=== PATIENT | female | born 1955 | race Caucasian/White ===

== ENCOUNTER 2021-11-19 21:08 | Inpatient (IN) | payer MEDICARE, OTHER ==
[~2021-11-19] VITALS: Ht 160 cm; Wt 46.3 kg
--- NOTE | 2021-11-19 21:20 | NUR ---
Dr. Sneed at bedside for MSE.
--- NOTE | 2021-11-19 21:25 | NUR ---
Pt medically cleared by Dr. Sneed.
[2021-11-19] MEDS ORDERED: INHALER (21:31)
--- NOTE | 2021-11-19 21:31 | NUR ---
PATIENT DOES NOT RECALL HOME MEDICATIONS.
--- NOTE | 2021-11-19 21:50 | NUR ---
Report given to December RN MHU.
[2021-11-19] MEDS ORDERED: HALOPERIDOL LACTATE 5 MG/1 ML VIAL IM ONE ×2 (22:00)
[2021-11-19] MEDS ORDERED: diphenhydrAMINE 50 MG/1 ML VIAL IM ONE (22:00)
[2021-11-19] MEDS ORDERED: diphenhydrAMINE 50 MG/1 ML VIAL ONE (22:02)
[2021-11-19] MEDS ORDERED: HALOPERIDOL LACTATE 5 MG/1 ML VIAL ONE (22:03)
[2021-11-19 22:30] VITALS: BP 103/58
[2021-11-19] MEDS ORDERED: MAG HYDROX/AL HYDROX/SIMETH 30 ML LIQUID UDC PO PRN (22:30)
--- NOTE | 2021-11-19 22:40 | NUR ---
GPS ADMISSION: Patient is a 66 year old female, brought into the ER from [facility] on 5150 for DTO and GD. Per the hold, the police were called to her residence because she was screaming and threatening the neighbors. The patient was paranoid and thinks people are stalking her. In the ER, the patient was aggressive and tried to strike the staff. Upon face to face evaluation the patient was argumentative, combative and labile. The patient has pain and a large prolapsed rectum. No home medications reported or documented. The patient was redirectable and took a shower. A injection was given per ED staff prior to the admission. Orders received and patient was given a copy of the Patient Advisement and Patients rights handbook. The unit rules were explained . Safety Stratiges are in place and continuing to monitor for behavior escalation.
[2021-11-19] MEDS ORDERED: ALBUTEROL SULFATE 2.5 MG/3 ML NEBU NEB PRN (23:45)
[2021-11-20] MEDS: HYDROCODONE/APAP 10-325 MG TABLET PO PRN ×2 (03:47→20:23)
--- NOTE | 2021-11-20 06:12 | NUR ---
Patient remained stable during the shift. no distress identified. Denies SI. Kept call light within reach. All due meds given. all needs attended. Safety measures maintained. Will endorse to the next shift for continuity of care
[2021-11-20 07:58] LABS: BILIRUBIN,TOTAL 0.5 mg/dL (0.2-1.0); CREATININE 0.5 mg/dL (0.6-1.3); TOTAL PROTEIN, SERUM 6.2 g/dL (6.4-8.2)
[2021-11-20] MEDS: NICOTINE 14 MG/24HR PATCH TD SCH (08:00)
[2021-11-20 09:17] VITALS: BP 115/76
[2021-11-20 17:08] VITALS: BP 131/59
[2021-11-20 20:00] VITALS: BP 134/85
[2021-11-20] MEDS: risperiDONE 1 MG TABLET PO SCH (21:23)
[2021-11-21 05:59] VITALS: BP 104/70
--- NOTE | 2021-11-21 06:20 | NUR ---
GPS: Remain calm and cooperative. npo since midnight. no pain or agitation noted at this time. resting in bed comfortably. slept 8 hrs through the night. continue plan of care.
--- NOTE | 2021-11-21 07:00 | NUR ---
PT WENT TO THE OPERATING ROOM FOR REDUCTION OF RECTAL PROLAPSE VIA HER BED,ACCOMPANIED BY OR STAFFS.PT IS ALERT,ORIENTEDX2-3.NPO SINCE AFTER MIDNIGHT AND URINATED BEFORE SHE LEFT,VITAL SIGNS-STABLE.SHE SLEPT GOOD LAST NIGHT AND IN NO ACUTE DISTRESS.WILL CONTINUE TO MONITOR.
[2021-11-21] MEDS ORDERED: BUPIVACAINE 0.25% 30 ML VIAL ONE (07:02)
[2021-11-21] MEDS ORDERED: NEOSTIGMINE METHYLSULFATE 10 MG/10 ML VIAL IV ONE (07:33)
[2021-11-21] MEDS ORDERED: LIDOCAINE-MPF 2% 5 ML VIAL IJ ONE (07:33)
[2021-11-21] MEDS ORDERED: DEXAMETHASONE SOD PHOSPHATE 4 MG INJ IV ONE (07:33)
[2021-11-21] MEDS ORDERED: FENTANYL CITRATE 100 MCG/2 ML AMPUL ONE (07:33)
[2021-11-21] MEDS ORDERED: PROPOFOL 200 MG/20 ML BOTTLE IV ONE (07:33)
[2021-11-21] MEDS: NICOTINE 14 MG/24HR PATCH TD SCH (09:17)
[2021-11-21] MEDS: risperiDONE 1 MG TABLET PO SCH ×2 (09:18→20:21)
[2021-11-21] MEDS: DIVALPROEX 250 MG TABLET.DR PO SCH ×3 (09:18→16:12)
[2021-11-21 09:50] VITALS: BP 99/63
--- NOTE | 2021-11-21 10:00 | NUR ---
pt returned from surgical procedure. Pt is calm and cooperative, hyperverbal at times. Pt is quite delusional, saying shes glad shes not having an ectopic . Reoriented to reality. v/s stable. denies pain or discomfort at this time.
[2021-11-21 16:17] VITALS: BP 104/63
--- NOTE | 2021-11-21 17:35 | NUR ---
no complications from surgery noted at this time. Pt able to make all needs. Denies pain or discomfort at this time. V/S WNL.
[2021-11-21 20:00] VITALS: BP 138/72
[2021-11-21] MEDS: TEMAZEPAM 7.5 MG CAPSULE PO PRN (22:04)
--- NOTE | 2021-11-22 06:41 | NUR ---
GPS/NSG PATIENT OBSERVED PACING IN HER ROOM, HYPERVERBAL. APPEARED TO BE TALKING TO HERSELF WELL RESPONDING TO INTERNAL STIMULI. PRN FOR INSOMNIA ADMINISTERED ORDERED.
[2021-11-22 07:43] VITALS: BP 97/57
[2021-11-22] MEDS: DIVALPROEX 250 MG TABLET.DR PO SCH ×3 (08:04→17:12)
[2021-11-22] MEDS: risperiDONE 1 MG TABLET PO SCH ×2 (08:04→20:15)
[2021-11-22] MEDS: NICOTINE 14 MG/24HR PATCH TD SCH (08:04)
--- NOTE | 2021-11-22 11:47 | NUR ---
SARAI Initial Discharge Note: Pt was admitted to [facility] from her home located at [address] [place] [address] on a 5150 hold for harm to others and be unable to take care of your own food clothing or penitentiary. Per pt's , Bebeto ([phone]) pt will return home under his care upon discharge. Bebeto stated he cannot provide transportation due to not having a car but he will have pt's insurance provide transportation upon discharge. Bebeto stated he will be the only one involved in the pt's continuation of care. SARAI will continue to work with pt, family and MD to ensure a safe and proper discharge plan for the pt.
--- NOTE | 2021-11-22 11:48 | NUR ---
SARAI Admit Source: Pt was admitted to [facility] from her home located at [address] [place] [address] on a 5150 hold for harm to others and be unable to take care of your own food clothing or retirement. Per pt's , Bebeto ([phone]) pt will return home under his care upon discharge. Bebeto stated he cannot provide transportation due to not having a car but he will have pt's insurance provide transportation upon discharge. Bebeto stated he will be the only one involved in the pt's continuation of care. SARAI will continue to work with pt, family and MD to ensure a safe and proper discharge plan for the pt.
--- NOTE | 2021-11-22 11:50 | NUR ---
Firearms Report: Stage Set Designer completed and submitted a [employer] firearms report for 5150 harm someone else and be unable to take care of your own food clothing or skilled nursing certifications. A copy of report has been placed in patient chart.
[2021-11-22] MEDS: HYDROCODONE/APAP 10-325 MG TABLET PO PRN (14:08)
[2021-11-22 16:17] VITALS: BP 125/73
--- NOTE | 2021-11-22 16:29 | NUR ---
Pt. is receive sleeping in her room. A/O X 2 to person, place. Pt. is a good historian and likes to engage in long conversations. "I want to go to [place] where my boyfriend lives". Compliant with medications and cooperative with care. [place] 10 mg/ 325mg was given at 14:08 for right ankle, effective. Denies SI/HI AH/VH. Emotional support provided. Fall and safety precautions implemented.
[2021-11-22] MEDS: ENSURE ENLIVE (VAN) 240 ML LIQUID PO SCH (17:13)
[2021-11-22 20:11] VITALS: BP 120/60
[2021-11-22] MEDS: TEMAZEPAM 7.5 MG CAPSULE PO PRN (20:59)
[2021-11-23] MEDS: risperiDONE 1 MG TABLET PO SCH ×2 (08:24→20:29)
[2021-11-23] MEDS: NICOTINE 14 MG/24HR PATCH TD SCH (08:24)
[2021-11-23] MEDS: DIVALPROEX 250 MG TABLET.DR PO SCH ×3 (08:24→16:57)
[2021-11-23] MEDS: ENSURE ENLIVE (VAN) 240 ML LIQUID PO SCH ×3 (08:27→16:58)
[2021-11-23 09:28] VITALS: BP 144/63
[2021-11-23 16:00] VITALS: BP 125/62
--- NOTE | 2021-11-23 17:29 | NUR ---
RECEIVED PATIENT A/O X2,ANXIOUS,DEPRESSED ISOLATIVE .SELF CARE,BRP AND AMBULATORY.COMPLIANT WITH MEDS AND CARE.S/P REDUCTION OF RECTAL PROLAPSE WITH NO BLEEDING NOTED.DENIES PAIN/SI/HI.MUMBLING TO SELF @ TIMES.PRN SLEEP MED WAS GIVEN WITH EFF.IN NO ACUTE DISTRESS.WILL CONTINUE TO MONITOR.
[2021-11-23 20:02] VITALS: BP 128/60
[2021-11-23] MEDS: HYDROCODONE/APAP 10-325 MG TABLET PO PRN (20:11)
[2021-11-23] MEDS: MAGNESIUM HYDROXIDE 30 ML LIQUID UDC PO PRN (23:29)
[2021-11-24] MEDS: HYDROCODONE/APAP 10-325 MG TABLET PO PRN ×2 (04:58→12:23)
[2021-11-24 07:30] VITALS: BP 120/88
[2021-11-24] MEDS: DIVALPROEX 250 MG TABLET.DR PO SCH ×3 (08:49→19:06)
[2021-11-24] MEDS: ENSURE ENLIVE (VAN) 240 ML LIQUID PO SCH ×3 (08:50→19:06)
[2021-11-24] MEDS: risperiDONE 1 MG TABLET PO SCH ×2 (08:50→20:59)
[2021-11-24] MEDS: NICOTINE 14 MG/24HR PATCH TD SCH (08:50)
--- NOTE | 2021-11-24 09:52 | NUR ---
GPS: RECEIVED TODAY, PT HYPERVERBAL WHEN APPROACHED. COMPLIANT WITH MEDS AND CARE. NOT IN DISTRESS AT THIS TIME.
[2021-11-24] MEDS: LORAZEPAM 1 MG TABLET PO PRN (15:58)
--- NOTE | 2021-11-24 15:58 | NUR ---
GPS: PT GETS ANXIOUS BECAUSE OF THE OTHER PT BEHAVIOR. PT REQUESTED FOR ATIVAN, GIVEN AND TOLERATED WELL. WILL MONITOR PT.
[2021-11-24] MEDS: MAGNESIUM HYDROXIDE 30 ML LIQUID UDC PO PRN (20:59)
[2021-11-24 21:01] VITALS: BP 125/45
[2021-11-24] MEDS: TEMAZEPAM 7.5 MG CAPSULE PO PRN (22:20)
--- NOTE | 2021-11-25 04:46 | NUR ---
Received to care, lying in bed, pleasant, anxious, and hyperverbal upon approach. Reports no bowel movement x 6 days. Milk of Magnesia given at bedtime, for second straight night. Also given prune juice. Abdomen is soft and tender. Denies any pain, ofr other GI symptoms. Bowel sounds are present, but decreased. Encouraged to report any change in condition. Restoril given at bedtime for insomnia. Sleeping well, this night. Addendum: 11/25/21 at 0453 by CHER LANG LVN Pt advised that staff will alert MD in AM, of constipation.
[2021-11-25 07:30] VITALS: BP 119/67
[2021-11-25] MEDS: risperiDONE 1 MG TABLET PO SCH ×2 (08:10→20:39)
[2021-11-25] MEDS: DIVALPROEX 250 MG TABLET.DR PO SCH ×2 (08:10→13:05)
[2021-11-25] MEDS: NICOTINE 14 MG/24HR PATCH TD SCH (08:11)
[2021-11-25] MEDS: ENSURE ENLIVE (VAN) 240 ML LIQUID PO SCH ×3 (08:11→17:43)
--- NOTE | 2021-11-25 08:54 | NUR ---
GPS: RECEIVED PT AWAKE AT THE ACTIVITY ROOM COLORING AND WATCHING TV. PT APOLOGETIC OF WHAT SHE BEHAVED YESTERDAY. PT PLEASANT AND DENIES ANY PAIN OR DISCOMFORT AT THIS TIME. COMPLIANT WITH CARE AND MEDS.
[2021-11-25] MEDS ORDERED: MIRALAX 17 GM POWD.PACK PO ONE (14:30)
--- NOTE | 2021-11-25 14:34 | NUR ---
GPS: CALLED LUCILLE MANRIQUEZ NP RE: PT NOT HAVING BOWEL MOVEMENT X 6DAYS. PT PASSING FLATULENCE FREQUENTLY BUT NO BM. PT DENIES ANY PAIN OR DISCOMFORT AT SURGERY SITE. NOTED NO BLEEDING AT THIS TIME AT THE SITE. PT AIR INTERCEPT CONTROLLER SUPERVISOR ORDERED MIRALAX AND WA GIVEN TO PT AND TOLERATED WELL. ADVISED PT TO HAVE SENAKOT TONIGHT JUST IN CASE NO BM.
[2021-11-25 16:00] VITALS: BP 105/60
[2021-11-25 20:00] VITALS: BP 119/72
[2021-11-25] MEDS: DIVALPROEX 500 MG TABLET.DR PO SCH (20:39)
[2021-11-25] MEDS: TEMAZEPAM 7.5 MG CAPSULE PO PRN (22:17)
[2021-11-25] MEDS: SENNOSIDES 1 TABLET PO PRN (22:17)
[2021-11-26] MEDS: LORAZEPAM 1 MG TABLET PO PRN (03:14)
--- NOTE | 2021-11-26 06:20 | NUR ---
Received at start of shift, pleasant, but hyperverbal. Still no bowel movement, so Sennakot was given at bedtime. Restoril was also given, but she woke up around 0300, and took PRN Ativan, and went back to sleep for an hour or so. She is now awake, but still no result from the Sennokot. Will continue to monitor closely.
[2021-11-26 07:48] VITALS: BP 114/75
[2021-11-26] MEDS: DIVALPROEX 250 MG TABLET.DR PO SCH ×2 (09:07→12:53)
[2021-11-26] MEDS: risperiDONE 1 MG TABLET PO SCH (09:07)
[2021-11-26] MEDS: NICOTINE 14 MG/24HR PATCH TD SCH (09:08)
[2021-11-26] MEDS: ENSURE ENLIVE (VAN) 240 ML LIQUID PO SCH ×3 (09:09→17:07)
--- NOTE | 2021-11-26 15:40 | NUR ---
Gps/Therapist Occupational- Encouraged participation in her group therapy. Cooperative, redirectable, verbalized feelings and needs.
[2021-11-26 17:43] VITALS: BP 116/70
[2021-11-26] MEDS: HYDROCODONE/APAP 10-325 MG TABLET PO PRN (18:48)
[2021-11-26 20:23] VITALS: BP 132/61
[2021-11-26] MEDS: risperiDONE 0.5 MG TABLET PO SCH (22:47)
[2021-11-26] MEDS: DIVALPROEX 500 MG TABLET.DR PO SCH (22:47)
[2021-11-26] MEDS: SENNOSIDES 1 TABLET PO PRN (22:48)
[2021-11-27] MEDS: TEMAZEPAM 7.5 MG CAPSULE PO PRN ×2 (00:15→23:58)
--- NOTE | 2021-11-27 03:28 | NUR ---
Received to care, sitting in room, talking with room mate, speech is hyperverbal. Denies any psychotic sx. Slept
[2021-11-27] MEDS: HYDROCODONE/APAP 10-325 MG TABLET PO PRN ×3 (05:40→20:25)
[2021-11-27 07:30] VITALS: BP 97/61
--- NOTE | 2021-11-27 07:30 | NUR ---
PRN senokot was given last night, and she reported that she had 3 small soft bowel movements.
[2021-11-27] MEDS: DIVALPROEX 250 MG TABLET.DR PO SCH ×2 (08:29→12:21)
[2021-11-27] MEDS: risperiDONE 0.5 MG TABLET PO SCH ×2 (08:30→20:19)
[2021-11-27] MEDS: ENSURE ENLIVE (VAN) 240 ML LIQUID PO SCH ×3 (08:32→17:33)
[2021-11-27] MEDS: NICOTINE 14 MG/24HR PATCH TD SCH (08:32)
[2021-11-27 16:00] VITALS: BP 113/65
[2021-11-27 20:00] VITALS: BP 101/60
[2021-11-27] MEDS: DIVALPROEX 500 MG TABLET.DR PO SCH (20:19)
[2021-11-27 20:20] VITALS: BP 124/70
[2021-11-28] MEDS: HYDROCODONE/APAP 10-325 MG TABLET PO PRN ×2 (06:01→18:42)
--- NOTE | 2021-11-28 06:48 | NUR ---
GPS: Remain calm and cooperative with meds and care. c/o rectal pain. norco given twice through the shift. slept 5 hrs after sleeping meds given. self care no acute distress noted.
[2021-11-28 08:13] VITALS: BP 100/54
[2021-11-28] MEDS: DIVALPROEX 250 MG TABLET.DR PO SCH ×2 (08:24→12:28)
[2021-11-28] MEDS: ENSURE ENLIVE (VAN) 240 ML LIQUID PO SCH ×3 (08:25→17:10)
[2021-11-28] MEDS: risperiDONE 0.5 MG TABLET PO SCH ×2 (08:25→21:54)
[2021-11-28] MEDS: NICOTINE 14 MG/24HR PATCH TD SCH (08:26)
--- NOTE | 2021-11-28 14:56 | NUR ---
Gps/Molder Helper- Compliant with routine meds. self care, ambulates around. Adequate relief from her hip pain. Cooperative, making her simple needs known to the staff , ,independent with her ADLs ,
[2021-11-28 17:02] VITALS: BP 108/52
[2021-11-28 20:18] VITALS: BP 126/67
[2021-11-28] MEDS: DIVALPROEX 500 MG TABLET.DR PO SCH (21:51)
[2021-11-28] MEDS: SENNOSIDES 1 TABLET PO PRN (21:54)
[2021-11-29] MEDS: TEMAZEPAM 7.5 MG CAPSULE PO PRN ×2 (01:30→21:48)
[2021-11-29] MEDS: HYDROCODONE/APAP 10-325 MG TABLET PO PRN ×2 (02:41→20:24)
[2021-11-29] MEDS: ACETAMINOPHEN 325 MG TABLET PO PRN (06:18)
--- NOTE | 2021-11-29 06:44 | NUR ---
Received to care, sitting in room, talking with room mate, speech is hyperverbal. Denies any psychotic sx. Slept well during night. Reported having a BM, and assisted with a shower. Rectal area remains clean and dry. Right hip continues to bother her. PRN [place] was given with good relief. No distress, noted.
[2021-11-29 08:04] VITALS: BP 97/65
[2021-11-29] MEDS: NICOTINE 14 MG/24HR PATCH TD SCH (08:43)
[2021-11-29] MEDS: DIVALPROEX 250 MG TABLET.DR PO SCH ×2 (08:43→12:37)
[2021-11-29] MEDS: risperiDONE 0.5 MG TABLET PO SCH ×2 (08:43→20:22)
[2021-11-29] MEDS: ENSURE ENLIVE (VAN) 240 ML LIQUID PO SCH ×3 (08:44→16:46)
[2021-11-29 16:11] VITALS: BP 122/76
[2021-11-29] MEDS: LORAZEPAM 1 MG TABLET PO PRN ×2 (18:02→23:16)
--- NOTE | 2021-11-29 18:57 | NUR ---
GPS: Nursing Notes: Destructive Behavior To Others: Patient is awake and responding to her name, needs prompting to participate in therapeutic groups, sundown behavior, labile, unpredictable behavior, shouting to unseen others in the bathroom, verbal abusive, threatening staff with a law suit, internally preoccupied, poor anger management, unable to formulate a viable plan for self care, continue with treatment plan.
[2021-11-29 20:19] VITALS: BP 111/64
[2021-11-29] MEDS: DIVALPROEX 500 MG TABLET.DR PO SCH (20:22)
--- NOTE | 2021-11-30 02:11 | NUR ---
VISUAL CHECKS AND ROUNDS MADE, PATIENT IS COMFORTABLY SLEEPING. WILL CONTINUE TO MONITOR.
[2021-11-30] MEDS: HYDROCODONE/APAP 10-325 MG TABLET PO PRN ×2 (06:46→17:39)
[2021-11-30 08:00] VITALS: BP 101/67
[2021-11-30] MEDS: NICOTINE 14 MG/24HR PATCH TD SCH (08:52)
[2021-11-30] MEDS: risperiDONE 0.5 MG TABLET PO SCH (08:52)
[2021-11-30] MEDS: DIVALPROEX 250 MG TABLET.DR PO SCH ×2 (08:52→12:41)
[2021-11-30] MEDS: ENSURE ENLIVE (VAN) 240 ML LIQUID PO SCH ×3 (08:52→16:54)
[2021-11-30] MEDS: LORAZEPAM 1 MG TABLET PO PRN ×2 (12:41→20:33)
--- NOTE | 2021-11-30 15:34 | NUR ---
GPS: Nursing Notes: Destructive Behavior To Others: Patient is awake and responding to her name, labile, unpredictable behavior, sundown behavior, gets easily irritable when redirected, needs prompting to participate in therapeutic groups, loud and pressured speech at times, gets in the bathroom and starts shouting profanities toward peers and staff, but compliant with her PRN medication for agitation, unable to formulate a viable plan for self care, continue to monitor for safety, continue with treatment plan.
[2021-11-30 16:49] VITALS: BP 116/60
[2021-11-30 20:20] VITALS: BP 111/56
[2021-11-30] MEDS: DIVALPROEX 500 MG TABLET.DR PO SCH (20:32)
[2021-11-30] MEDS: risperiDONE 1 MG TABLET PO SCH (20:32)
[2021-11-30] MEDS: ACETAMINOPHEN 325 MG TABLET PO PRN (20:33)
[2021-12-01] MEDS: TEMAZEPAM 7.5 MG CAPSULE PO PRN (01:02)
[2021-12-01] MEDS: HYDROCODONE/APAP 10-325 MG TABLET PO PRN ×2 (01:56→23:44)
--- NOTE | 2021-12-01 03:49 | NUR ---
Received to care, isolating mostly in room, compliant with care, behavior has been appropriate, interacting with room mate. Ativan was given at bedtime along with her routine meds, and she went back to sleep. PRN Restoril was given at 0100 for insomnia, and she went de to sleep. No distress noted.
[2021-12-01 07:17] LABS: HEMATOCRIT 36.6 % (31.2-41.9); MEAN CORPUSCULAR HEMOGLOBIN 29.7 uug (24.7-32.8); MEAN CORPUSCULAR VOLUME 90.2 fL (75.5-95.3); PLATELET COUNT (AUTO) 487 K/uL (179-408)
[2021-12-01 07:30] VITALS: BP 96/58
[2021-12-01 07:55] LABS: BILIRUBIN,TOTAL 0.4 mg/dL (0.2-1.0); CREATININE 0.7 mg/dL (0.6-1.3); MAGNESIUM 2.2 mg/dL (1.8-2.4); PHOSPHOROUS 4.6 mg/dL (2.5-4.9); POTASSIUM 4.6 mmol/L (3.5-5.1); TOTAL PROTEIN, SERUM 6.5 g/dL (6.4-8.2)
[2021-12-01] MEDS: NICOTINE 14 MG/24HR PATCH TD SCH (08:15)
[2021-12-01] MEDS: DIVALPROEX 250 MG TABLET.DR PO SCH ×2 (08:16→12:38)
[2021-12-01] MEDS: ENSURE ENLIVE (VAN) 240 ML LIQUID PO SCH ×3 (08:16→17:35)
[2021-12-01] MEDS: risperiDONE 1 MG TABLET PO SCH ×2 (08:16→20:04)
[2021-12-01 08:17] LABS: THYROID STIMULATING HORMONE 6.463 mIU/mL (0.358-3.740)
--- NOTE | 2021-12-01 15:35 | NUR ---
Received patient sleeping in her room. A/O X 2 -3 to person, place. Pt. is cooperative with care, isolative, anxious at times. Compliant with medications. Pt. ambulates with walker, unsteady gait. Denies SI/HI AH/VH. Pt. has prolapse rectum, wears diaper, but continent. Denies pain at this moment. Requires minimal assistance with ADL. Pt. is encourage to verbalize concerns. Fall and safety precautions implemented.
[2021-12-01 16:00] VITALS: BP 115/76
[2021-12-01 20:00] VITALS: BP 124/54
[2021-12-01] MEDS: DIVALPROEX 500 MG TABLET.DR PO SCH (20:04)
[2021-12-01] MEDS: ACETAMINOPHEN 325 MG TABLET PO PRN (20:04)
--- NOTE | 2021-12-01 21:45 | NUR ---
RECEIVED PATIENT IN HER ROOM IN BED. SHE IS NOTED SLEEPING BUT EASILY AROUSABLE. PATIENT IS NOTED A/O X 3 ABLE TO VERBALIZED FEELINGS. SHE IS NOTED WITH LOW MOOD, AFFECT IS BLUNTED. SHE DENIED SI/HI/VH/AH. SHE IS ABLE TO VERBALLY CFS. SHE IS REASSURED FOR HER SAFETY. SAFETY AND FALL PRECAUTIONS ARE IN PLACE. V/S STABLE. HER ORAL TEMPERATURE IS 99.7F. PATIENT IS IN NO DISTRESS. SHE WAS GIVEN TYLENOL 650MG PO PRN AT APPROX. 2009. IT WAS RECHECKED AND IS NOW 98.0F. PO FLUIDS AND SNACKS WAS GIVEN TO PATIENT. WILL CONTINUE TO MONITOR.
[2021-12-02] MEDS: TEMAZEPAM 7.5 MG CAPSULE PO PRN (02:29)
[2021-12-02 04:11] LABS: *BILIRUBIN,URIN NEGATIVE (NEGATIVE); *BLOOD, URINE 1+ (NEGATIVE); *CLARITY,URINE CLOUDY (CLEAR); *COLOR,URINE YELLOW (YELLOW); *KETONES,URINE NEGATIVE (NEGATIVE); *UROBILINOGEN,URINE 0.2 E.U./dl (NORMAL); LEUKOCYTE ESTERASE ,URINE 2+ (NEGATIVE); NITRITE, URINE POSITIVE (NEGATIVE); PH,URINE 8.5 (5.0-8.0); UGLUCOSE NEGATIVE (NEGATIVE)
[2021-12-02 04:23] LABS: BACTERIA,URINE MANY /HPF (NONE SEEN); SQUAMOUS EPITHELIAL CELL,UR FEW /HPF (NONE SEEN); TRIPLE PHOSPHATE CRYSTAL,UR MODERATE /HPF (NONE SEEN); WBC,URINE TNTC /HPF (0-3)
[2021-12-02 07:30] VITALS: BP 100/62
[2021-12-02] MEDS: ENSURE ENLIVE (VAN) 240 ML LIQUID PO SCH ×3 (08:37→16:36)
[2021-12-02] MEDS: NICOTINE 14 MG/24HR PATCH TD SCH (08:37)
[2021-12-02] MEDS: DIVALPROEX 250 MG TABLET.DR PO SCH ×2 (08:37→12:24)
[2021-12-02] MEDS: risperiDONE 1 MG TABLET PO SCH ×2 (08:44→20:39)
[2021-12-02] MEDS: HYDROCODONE/APAP 10-325 MG TABLET PO PRN ×2 (08:46→18:17)
[2021-12-02 16:00] VITALS: BP 116/77
--- NOTE | 2021-12-02 16:00 | NUR ---
Gps/Crime Specialist- Stayed in her room during her meals, compliant with routine medications, verbalized adequate pain relief. Making her simple needs known to the staff .
--- NOTE | 2021-12-02 19:06 | NUR ---
Gps/Switch Inspector- Covid antigen swab nares done
[2021-12-02 20:00] VITALS: BP 112/64
[2021-12-02] MEDS: SULFAMETH/TRIMETH 800/160 MG TABLET PO SCH (20:38)
[2021-12-02] MEDS: DIVALPROEX 500 MG TABLET.DR PO SCH (20:38)
--- NOTE | 2021-12-02 20:45 | NUR ---
Received patient in the day room. she is noted A/O x 3 Pleasant and cooperative upon approached. She is able to verbalized her feelings. She denied SI/HI/VH/AH. she is able to verbally CFS. Patient aware of her incoming discharge for [facility]. Patient is reassured for her safety. safety and fall precaution are in placed. She is noted goal oriented. Dr Muller [facility] was notified of results of her urinalysis and a new order was obtained to administer Bactrim DS Q12hrs X 7 days for UTI, care plan was updated, order was noted and carried out. V/S stable. patient is afebrile in no distress, PO fluids and snacks were given. will continue to monitor.
[2021-12-03] MEDS: HYDROCODONE/APAP 10-325 MG TABLET PO PRN ×2 (03:25→13:02)
[2021-12-03 07:30] VITALS: BP 124/58
[2021-12-03] MEDS: DIVALPROEX 250 MG TABLET.DR PO SCH ×2 (08:38→12:59)
[2021-12-03] MEDS: ENSURE ENLIVE (VAN) 240 ML LIQUID PO SCH ×2 (08:48→12:57)
[2021-12-03] MEDS: risperiDONE 1 MG TABLET PO SCH (08:48)
[2021-12-03] MEDS: SULFAMETH/TRIMETH 800/160 MG TABLET PO SCH (08:49)
[2021-12-03] MEDS: NICOTINE 14 MG/24HR PATCH TD SCH (08:49)
--- NOTE | 2021-12-03 10:11 | NUR ---
SARAI Discharge Note: Pt will be discharged to [facility] ([phone]) [address] [place] [address] via Ambulance transportation at 1PM. SARAI spoke with admin coordinator, Anabelle at the facility who states they are ready to accept the patient today. Pt is aware and agreeable with discharge plans. Pt is alert and oriented x4, is unable to plan for self-care at this time; however, is willing to accept care at SNF. Pts , Bebeto ([phone]) is aware and agreeable with the discharge plan. Pt denies any suicidal or homicidal ideation. Pt will follow-up at the facility with Psychiatrist, Dr. Jose and Hearing Aid Repair Technician, Dr. Kolb. Pt presents with calm mood and congruent affect. PHARMACY: [facility] ([phone]) [address] [address]. Admissions stated pt will be in room 9A.
--- NOTE | 2021-12-03 13:22 | NUR ---
Gps/Casket Trimmer- Called [facility] report was given to Nurse Soni . All belongings given back to patient. Verbalized adequate relief from right hip pain.Patient appeared to be in good spirit with no new complaints noted. Ambulance arranged picking machine operator helper time at [phone] .
--- NOTE | 2021-12-03 15:34 | NUR ---
Gps/Tallow Maker- Ambulance in to pick up attendant patient. All belongings given back to patient, verbalized adequate relief from her pain. No new complaints , no suicidal nor homocidal ideation .Discharged in good spirit .
== END 2021-12-03 15:39 | DRG 885 ==
LOC: ER 21:16 → GPS 21:51
PROVIDERS: ADMIT Psychiatry & Neurology Psychiatry; ATTEND Nurse Practitioner Acute Care
DX: F25.9 Schizoaffective disorder, unspecified (principal); E44.0 Moderate protein-calorie malnutrition; R64 Cachexia; Z68.1 Body mass index [BMI] 19.9 or less, adult; K62.3 Rectal prolapse; F17.210 Nicotine dependence, cigarettes, uncomplicated; F39 Unspecified mood [affective] disorder; G89.4 Chronic pain syndrome; J44.9 Chronic obstructive pulmonary disease, unspecified; K56.41 Fecal impaction; N20.0 Calculus of kidney; R62.7 Adult failure to thrive; Z73.6 Limitation of activities due to disability; Z79.891 Long term (current) use of opiate analgesic; F29 Unspecified psychosis not due to a substance or known physiological condition; M62.50 Muscle wasting and atrophy, not elsewhere classified, unspecified site; Z20.822 Contact with and (suspected) exposure to COVID-19; Z91.14 Patient's other noncompliance with medication regimen; M48.00 Spinal stenosis, site unspecified
CPT/HCPCS: 36415; 80164; 83735; 84100; 84443; 85025; 87077; 87086; 97161; A4663; J1100; J1200; J1630; J3010; J3490

== ENCOUNTER 2021-11-21 07:30 | Day surgery (SDC) | payer MEDICARE, OTHER ==
[~2021-11-21 07:30] MED LIST: INHALER
== END 2021-11-21 09:20 | disposition home or self-care (01) ==
LOC: SURGERY 07:30
PROVIDERS: ATTEND Nurse Practitioner Acute Care
DX: K62.3 Rectal prolapse (principal); F41.9 Anxiety disorder, unspecified; F32.9 Major depressive disorder, single episode, unspecified; F17.210 Nicotine dependence, cigarettes, uncomplicated; Z79.899 Other long term (current) drug therapy; Z98.890 Other specified postprocedural states
CPT/HCPCS: A4649